=== PATIENT | male | born 1960 | race Hispanic/Latino ===

== ENCOUNTER 2017-09-30 23:31 | Emergency (ER) | payer SELFPAY ==
[2017-10-01 00:49] VITALS: BP 111/70
== END 2017-10-01 04:00 | disposition left against medical advice (07) ==
LOC: ED 23:31
DX: M25.522 Pain in left elbow (principal); Z53.21 Procedure and treatment not carried out due to patient leaving prior to being seen by health care provider

== ENCOUNTER 2017-11-28 14:13 | Emergency (ER) | payer SELFPAY ==
[2017-11-28 14:21] VITALS: BP 145/93
--- NOTE | 2017-11-28 17:22 | Emergency Department Report ---
ED Upper Extremity Inj HPI - General Chief Complaint: Extremity Injury, Upper Stated Complaint: ELBOW PAIN Time Seen by Provider: 11/28/17 17:08 Source: patient Mode of arrival: Ambulatory Limitations: No Limitations - History of Present Illness Initial Comments: This is a 57-year-old male who presents with pain and swelling to left elbow for one month. Patient recalls having noticing a knot to the left elbow but does not recall an injury one month ago. He does not have a primary care provider to follow up with so she applied and ice and heat with no improvement of symptoms. Patient reports pain is worse with movement and touch. Denies numbness or tingling, erythema, drainage, recent injury, warm to touch, and fever. MD Complaint: Injury to:: left, elbow Onset/Timin -: month(s) Other Extremity Injury: Elbow: Left Other Injuries: none Handedness: right Place: home Severity scale (0 -10): 6 Improves With: cold therapy Worsens With: movement of extremity, other Context: other (unknown cause) Associated Symptoms: denies other symptoms Treatments Prior to Arrival: cold therapy - Related Data Home Medications Medication Instructions Recorded Confirmed Last Taken Lisinopril [Zestril TAB] 10 mg PO QDAY 08/22/15 08/22/15 08/21/15 Previous Rx's Medication Instructions Recorded Last Taken Type Aspirin EC [Aspirin Enteric Coated 325 mg PO QDAY #30 tablet 08/25/15 Unknown Rx TAB] AtorvaSTATin [Lipitor] 40 mg PO QHS #30 tablet 08/25/15 Unknown Rx Clopidogrel [Plavix] 75 mg PO QDAY #30 tablet 08/25/15 Unknown Rx Colchicine [Colcrys] 0.6 mg PO BID #14 tablet 08/25/15 Unknown Rx Lisinopril [Zestril TAB] 5 mg PO QDAY #30 tablet 08/25/15 Unknown Rx Metoprolol Xl [Metoprolol 25 mg PO QDAY #30 tablet 08/25/15 Unknown Rx SUCCINATE ER TAB] Diclofenac Sodium [Voltaren] 100 gm TP QID PRN #1 gel..gram. 11/28/17 Unknown Rx Ibuprofen [Motrin 600 MG tab] 600 mg PO Q8H PRN #15 tablet 11/28/17 Unknown Rx Allergies Allergy/AdvReac Type Severity Reaction Status Date / Time Sulfa (Sulfonamide Allergy Hives Verified 11/28/17 14:18 Antibiotics) ED Review of Systems ROS: Stated complaint: ELBOW PAIN Other details as noted in HPI Constitutional: denies: chills, fever Respiratory: denies: cough, shortness of breath, wheezing Gastrointestinal: denies: abdominal pain, nausea, diarrhea Skin: lesions (swelling to the left elbow). denies: rash Neurological: denies: headache, weakness, numbness, paresthesias Psychiatric: denies: anxiety, depression ED Past Medical Hx - Past Medical History Hx Hypertension: Yes Hx Heart Attack/AMI: Yes (x3, cardiac stents x2 2015) Hx Congestive Heart Failure: No Hx Diabetes: No Hx Liver Disease: Yes (Hepatitis B and C) Hx Arthritis: Yes Hx Asthma: No Hx COPD: No Additional medical history: Right inguinal hernia - Surgical History Additional Surgical History: cardiac catheterization 2014 - Social History Smoking Status: Current Every Day Smoker Substance Use Type: None - Medications Home Medications: Home Medications Medication Instructions Recorded Confirmed Last Taken Type Lisinopril [Zestril TAB] 10 mg PO QDAY 08/22/15 08/22/15 08/21/15 History Aspirin EC [Aspirin Enteric Coated 325 mg PO QDAY #30 tablet 08/25/15 Unknown Rx TAB] AtorvaSTATin [Lipitor] 40 mg PO QHS #30 tablet 08/25/15 Unknown Rx Clopidogrel [Plavix] 75 mg PO QDAY #30 tablet 08/25/15 Unknown Rx Colchicine [Colcrys] 0.6 mg PO BID #14 tablet 08/25/15 Unknown Rx Lisinopril [Zestril TAB] 5 mg PO QDAY #30 tablet 08/25/15 Unknown Rx Metoprolol Xl [Metoprolol 25 mg PO QDAY #30 tablet 08/25/15 Unknown Rx SUCCINATE ER TAB] Diclofenac Sodium [Voltaren] 100 gm TP QID PRN #1 gel..gram. 11/28/17 Unknown Rx Ibuprofen [Motrin 600 MG tab] 600 mg PO Q8H PRN #15 tablet 11/28/17 Unknown Rx ED Physical Exam - General Limitations: No Limitations General appearance: alert, in no apparent distress - Respiratory Respiratory exam: Present: normal lung sounds bilaterally. Absent: respiratory distress - Cardiovascular Cardiovascular Exam: Present: regular rate, normal rhythm. Absent: systolic murmur, diastolic murmur, rubs, gallop - GI/Abdominal GI/Abdominal exam: Present: soft, normal bowel sounds. Absent: organomegaly, mass - Expanded Upper Extremity Exam Left Shoulder Exam: Present: normal inspection, full ROM Upper Arm exam: Present: normal inspection, full ROM Elbow exam: Present: tenderness ( and pain with ROM), swelling (swelling over left olecranon area), pain w/ pronation/supination. Absent: full ROM ( decreased ROM), abrasion, laceration, ecchymosis, deformity, crepidus, dislocation, erythema, effusion, tenderness over radial head Forearm Wrist exam: Present: normal inspection, full ROM Hand Wrist exam: Present: normal inspection, full ROM Neuro motor exam: Present: thumb opposition intact, thumb IP flexion intact, thumb adduction intact, fingers 2-5 abduction intact Neurosensory exam: Present: radial nerve intact, ulnar nerve intact, median nerve intact Vascular: Present: normal capillary refill, radial pulse - Neurological Exam Neurological exam: Present: alert, oriented X3 - Psychiatric Psychiatric exam: Present: normal affect, normal mood - Skin Skin exam: Present: warm, dry, intact, normal color. Absent: rash ED Course Vital Signs 11/28/17 14:18 Temperature 98.3 F Pulse Rate 58 L Respiratory 18 Rate Blood Pressure 145/93 O2 Sat by Pulse 98 Oximetry ED Medical Decision Making - Radiology Data Radiology results: report reviewed PROCEDURE: XR ELBOW 3+V LT TECHNIQUE: Left elbow, three views HISTORY: left elbow pain and swelling COMPARISON: No prior studies are available for comparison. FINDINGS: Posterior soft tissue swelling. No fracture or dislocation is seen. No joint effusion. IMPRESSION: There is posterior soft tissue swelling. No osseous abnormality is seen - Medical Decision Making This is a 57 y.o. male that presents with swelling over left olecranon area and pain with movement for 1 month. Hx HTN. Patient is stable and examined by me. Obtained x-ray of left elbow. There is posterior soft tissue swelling. No osseous abnormality is seen. No acute signs of distress noted. Applied acewrap and to left upper extremity. Referral to orthopedic for follow-up and primary care doctor. Start volteran gel and ibuprofen for symptom relief. Patient agrees to ED plan of care. Discharged home and follow up with PCP in 3 days. Critical care attestation.: If time is entered above; I have spent that time in minutes in the direct care of this critically ill patient, excluding procedure time. ED Disposition Clinical Impression: Left elbow pain Olecranon bursitis Qualifiers: Laterality: left Qualified Code(s): M70.22 - Olecranon bursitis, left elbow Disposition: TO HOME OR SELFCARE Is pt being admited?: No Does the pt Need Aspirin: No Condition: Stable Instructions: Elbow Bursitis (ED) Additional Instructions: Modify activity and rest while not at work. Follow up with physical therapy or Orthopedic Surgeon for management. Return to ER if erythema, increasing tenderness, increasing swelling which are signs of developing infection that require you to seek urgent medical attention. Prescriptions: Diclofenac Sodium [Voltaren] 100 gm TP QID PRN #1 gel..gram. PRN Reason: Pain, Moderate (4-6) Ibuprofen [Motrin 600 MG tab] 600 mg PO Q8H PRN #15 tablet PRN Reason: Pain Referrals: [facility] [Outside] - 3-5 Days AGUILAR TEE MD [Staff Physician] - 3-5 Days [facility] [Provider Group] - 3-5 Days Forms: Work/School Release Form(ED) Time of Disposition: 18:33 Print Language: TANZANIAN
[2017-11-28] MEDS ORDERED: ULTRAM PO ONE (17:33)
[2017-11-28] MEDS ORDERED: MOTRIN ONE (17:48)
--- NOTE | 2017-11-28 18:07 | XRay Report ---
FINAL REPORT PROCEDURE: XR ELBOW 3+V LT TECHNIQUE: Left elbow, three views HISTORY: left elbow pain and swelling COMPARISON: No prior studies are available for comparison. FINDINGS: Posterior soft tissue swelling. No fracture or dislocation is seen. No joint effusion. IMPRESSION: There is posterior soft tissue swelling. No osseous abnormality is seen
== END 2017-11-28 18:49 | disposition home or self-care (01) ==
LOC: ED 14:13
DX: M70.22 Olecranon bursitis, left elbow (principal); I10 Essential (primary) hypertension; M19.90 Unspecified osteoarthritis, unspecified site; I21.9 Acute myocardial infarction, unspecified; F17.200 Nicotine dependence, unspecified, uncomplicated; Z88.2 Allergy status to sulfonamides; Z98.890 Other specified postprocedural states; Z79.899 Other long term (current) drug therapy
CPT/HCPCS: 99283